=== PATIENT | female | born 2000 | race Caucasian/White ===

== ENCOUNTER 2022-09-02 15:38 | Emergency (ER) | payer OTHER ==
[2022-09-02 15:56] VITALS: BP 113/66; PULSE 70; RESP 18; TEMP 99.4; BMI 28.7
== END 2022-09-02 16:25 | disposition home or self-care (01) ==
LOC: FER 15:38
PROC: 0HQCXZZ Repair Left Upper Arm Skin, External Approach (ICD-10-PCS; principal; 2022-09-02)
DX: S41.112A Laceration without foreign body of left upper arm, initial encounter (principal); W26.8XXA Contact with other sharp object(s), not elsewhere classified, initial encounter
CPT/HCPCS: 99282-25